=== PATIENT | female | born 1960 | race Caucasian/White ===

== ENCOUNTER 2018-10-31 13:46 | Emergency (ER) | payer OTHER ==
[2018-10-31 14:09] VITALS: BP 111/65; PULSE 71; TEMP 97.6; BMI 29.0
[2018-10-31] MEDS ORDERED: DEXAMETHASONE SOD PHOSPHATE 10 MG/1 ML VIAL IM ONE (15:27)
[2018-10-31] MEDS ORDERED: diphenhydrAMINE HCL 25 MG CAPSULE (FP) PO ONE ×2 (15:27→15:30)
[2018-10-31] MEDS ORDERED: DEXAMETHASONE SOD PHOSPHATE 10 MG/1 ML VIAL ONE (15:30)
--- NOTE | 2018-10-31 16:05 | PDOC ---
History of Present Illness - General Chief Complaint: Rash Stated Complaint: SKIN RASH Time Seen by Provider: 10/31/18 14:50 History Source: Patient Exam Limitations: No Limitations - History of Present Illness Initial Comments: 10/31/18 15:54 used gil on skin 4 days ago and had acute onset of very itching rash to forearms and v of neck. Denies fever, denies swelling to lips, tongue, mouth. Denies shortness of breath or airway problems. Has never had a reaction to the same and has no known food ALLERGIES. Has not used any medications or lotions on same. 10/31/18 19:40 Timing/Duration: reports: getting worse, gone now Severity: Yes: mild, moderate Location: reports: extremities, face, torso (chest wall V) Respiratory Risk Factors: reports: foods Associated Symptoms: reports: denies symptoms, flushing. denies: fever, headache, malaise, nasal congestion, sore throat Past History - Travel Traveled outside of the country in the last 30 days: No (gil) Close contact w/someone who was outside of country & ill: No - Past Medical History Allergies/Adverse Reactions: Allergies Allergy/AdvReac Type Severity Reaction Status Date / Time No Known Allergies Allergy Verified 10/31/18 14:09 Home Medications: Ambulatory Orders Cetirizine HCl [Zyrtec -] 10 mg PO DAILY #30 tablet 10/31/18 COPD: No - Suicide/Smoking/Psychosocial Hx Smoking History: Never smoked Have you smoked in the past 12 months: No Hx Alcohol Use: No Drug/Substance Use Hx: No Substance Use Type: None Review of Systems - Review of Systems Able to Perform ROS?: Yes Is the patient limited Pashto proficient: Yes Constitutional: Yes: Symptoms Reported, See HPI, Fever, Malaise HEENTM: Yes: Symptoms Reported, See HPI, Nose Congestion, Throat Swelling Respiratory: Yes: See HPI. No: Symptoms reported Musculoskeletal: No: Symptoms Reported Integumentary: Yes: Symptoms Reported, See HPI, Erythema, Lesions, Pruritus, Rash All Other Systems: Reviewed and Negative *Physical Exam - Vital Signs Last Vital Signs Temp Pulse Resp BP Pulse Ox 97.6 F 71 18 111/65 98 10/31/18 14:06 10/31/18 14:06 10/31/18 14:06 10/31/18 14:06 10/31/18 14:06 - Physical Exam General Appearance: Yes: Nourished, Appropriately Dressed, Apparent Distress, Mild Distress HEENT: positive: ELOISA, Normal ENT Inspection, TMs Normal, Pharynx Normal (no swelling of lips, tongue, airway. Breathing is without distress), Nasal Congestion, Rhinorrhea Neck: positive: Tender, Supple Respiratory/Chest: positive: Lungs Clear, Normal Breath Sounds. negative: Chest Tender, Wheezing Musculoskeletal: positive: Normal Inspection Extremity: positive: Normal Capillary Refill, Normal Inspection, Normal Range of Motion. negative: Tender Integumentary: positive: Dry, Warm, Rash (maculopapular rash to chest wall and forearms extending up past elbows, no weeping lesions, no urticarial lesions, noted on all areas where citrus acid was applied.) Neurologic: positive: commercial lender II-XII NML intact, Fully Oriented, Alert, Normal Mood/ Affect, Normal Response, Motor Strength 5/5 Moderate Sedation - Procedure Monitoring Vital Signs: Procedure Monitoring Vital Signs Temperature 97.6 F 10/31/18 14:06 Pulse Rate 71 10/31/18 14:06 Respiratory Rate 18 10/31/18 14:06 Blood Pressure 111/65 10/31/18 14:06 O2 Sat by Pulse Oximetry (%) 98 10/31/18 14:06 ED Treatment Course - Medications Given in the ED: ED Medications Discontinued Medications Generic Name Dose Route Start Last Admin Trade Name Freq PRN Reason Stop Dose Admin Dexamethasone Sodium Phosphate 10 mg 10/31/18 15:27 10/31/18 15:33 Decadron Injection - IM 10/31/18 15:28 10 mg ONCE ONE Administration Diphenhydramine HCl 25 mg 10/31/18 15:27 10/31/18 15:33 Benadryl - PO 10/31/18 15:28 25 mg ONCE ONE Administration Progress Note - Progress Note Progress Note: Contact dermatitis, probably due to gil. Medicated with 1 dose of 10 mg by mouth Decadron and encouraged to continue antihistamine use. Given follow-up referral to dermatology *DC/Admit/Observation/Transfer Diagnosis at time of Disposition: Contact dermatitis Qualifiers: Contact dermatitis type: irritant Contact dermatitis trigger: food in contact with skin Qualified Code(s): L24.6 - Irritant contact dermatitis due to food in contact with skin - Discharge Dispostion Disposition: HOME Condition at time of disposition: Stable Decision to Admit order: No - Prescriptions Prescriptions: Cetirizine HCl [Zyrtec -] 10 mg PO DAILY #30 tablet - Referrals Referrals: Janell Rodriguez MD [Primary Care Provider] - Carole Al MD [Staff Physician] - - Patient Instructions Printed Discharge Instructions: DI for Contact Dermatitis Additional Instructions: USe Antihistamines as directed for itching and rash Cooler showers , no creams or lotions other than ALOE VERA> Followup with [facility] this week - Post Discharge Activity Forms/Work/School Notes: Back to Work
== END 2018-10-31 16:50 | disposition home or self-care (01) ==
LOC: JERFT 13:46
PROC: 3E0233Z Introduction of Anti-inflammatory into Muscle, Percutaneous Approach (ICD-10-PCS; principal; 2018-10-31)
DX: L24.6 Irritant contact dermatitis due to food in contact with skin (principal)
CPT/HCPCS: 99281-25; J1100